=== PATIENT | female | born 1950 | race Caucasian/White ===

== ENCOUNTER 2016-09-02 17:21 | Emergency (ER) | payer OTHER, MEDICAID ==
[2016-09-02] MEDS ORDERED: NS 1,000 ML IV ONE (17:27)
[2016-09-02] MEDS ORDERED: HYDROmorphONE/DILAUDID 1 MG/ML SYR IVP ONE (17:27)
[2016-09-02 17:37] VITALS: TEMP 98.8
[2016-09-02] MEDS ORDERED: HYDROmorphONE/DILAUDID 1 MG/ML SYR ONE (17:55)
[2016-09-02 18:14] LABS: % IMMATURE GRANULYOCYTES 0.3 % (0.0-1.1); ABSOLUTE IMMATURE GRANULOCYTES 0.03 10^3/uL (0.00-0.10); ADD DIFF? NO; ADD MORPH? NO; ADD SCAN? NO; ATYPICAL LYMPHOCYTE FLAG 0 (0-99); FRAGMENT RBC FLAG 0 (0-99); HEMATOCRIT 46.1 % (38.0-47.0); LEFT SHIFT FLG 0 (0-99); LIPEMIA HEMOLYSIS FLAG 90 (0-99); MEAN CELL HEMOGLOBIN 29.9 pg (27.9-34.1); MEAN CELL HEMOGLOBIN CONCENTR. 34.7 g/dL (32.4-36.7); MEAN PLATELET VOLUME 11.2 fL (8.7-11.7); PLATELET CLUMPS FLAG 10 (0-99); PLATELET COUNT 271 10^3/uL (150-400); RED BLOOD CELL COUNT 5.36 10^6/uL (4.18-5.33); RED CELL DISTRIBUTION WIDTH 13.1 % (11.5-15.2)
[2016-09-02] MEDS ORDERED: IOPAMIDOL (ISOVUE-300) 100 ML BTL IV ONE (18:18)
[2016-09-02 18:19] LABS: ANION GAP 14 mEq/L (8-16); CALCIUM 10.3 mg/dL (8.5-10.4); CARBON DIOXIDE 22 mEq/l (22-31); CHLORIDE 102 mEq/L (97-110); GLOMERULAR FILTRATION RATE 55; GLUCOSE 402 mg/dL (70-100); POTASSIUM 5.1 mEq/L (3.5-5.2); SODIUM 138 mEq/L (134-144)
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
[2016-09-02 20:33] VITALS: BP 152/89; PULSE 86; RESP 16; O2SAT 95
== END 2016-09-02 20:42 | disposition home or self-care (01) ==
LOC: EDUNIT#
DX: S20.219A Contusion of unspecified front wall of thorax, initial encounter (principal); E11.9 Type 2 diabetes mellitus without complications; F17.200 Nicotine dependence, unspecified, uncomplicated; V49.40XA Driver injured in collision with unspecified motor vehicles in traffic accident, initial encounter; Y92.410 Unspecified street and highway as the place of occurrence of the external cause; Y99.8 Other external cause status; Y93.89 Activity, other specified
CPT/HCPCS: 82947-QW; 96374; J1170; Q9967

== ENCOUNTER → 2016-11-16 | Outpatient (CLI) | payer OTHER, MEDICAID | LOC: BMCIMAGING 09:58 | PROVIDERS: ATTEND Orthopaedic Surgery | DX: M25.561 Pain in right knee (principal); Z96.651 Presence of right artificial knee joint ==

== ENCOUNTER → 2017-01-06 | Outpatient (CLI) | payer OTHER, MEDICAID | LOC: FIMAGING 15:00 | PROVIDERS: ATTEND Orthopaedic Surgery | DX: Z01.818 Encounter for other preprocedural examination (principal); Z96.651 Presence of right artificial knee joint; M17.11 Unilateral primary osteoarthritis, right knee; M25.461 Effusion, right knee ==

== ENCOUNTER 2017-01-16 06:04 | Inpatient (IN) | payer OTHER, MEDICAID ==
--- NOTE | 2017-01-11 07:26 | CPEKG ---
Heart Rate: 76 RR Interval: 789 P-R Interval: 160 QRSD Interval: 78 QT Interval: 396 QTC Interval: 446 P [place]: 60 QRS [place]: 0 T Wave [place]: 88 EKG Severity - NORMAL ECG - EKG Impression: SINUS RHYTHM EKG Impression: Some artifact noted Electronically Signed By: Doug Walden 11-Jan-2017 11:04:22
[~2017-01-16 06:04] MED LIST: DEXAMETHASONE 4 MG/ML VIAL IVP ONE; FAMOTIDINE 20 MG TAB PO ONE; LIDOCAINE 1% 5 ML, BUPIVACAINE 0.5% 5 ML, morphINE PF 5 MG in SYRINGE 0 ML IU ONE; TRANEXAMIC ACID 1 MG in NS 100 ML IV ONE; TRANEXAMIC ACID 800 MG in NS 100 ML IV ONE; VANCOMYCIN 1.25 GM in D5W 250 ML IV ONE; VANCOMYCIN PHARMACY TO DOSE MISC ONE
--- NOTE | 2017-01-16 06:31 | PDHPUP ---
History & Physical Update H&P update statement: This history and physical update is based on an assessment of the patient which was completed after admission or registration (within 24 hours), but prior to the surgery/procedure.
[2017-01-16] MEDS ORDERED: LIDOCAINE 1% 2 ML INJ ID PRN (07:00)
[2017-01-16] MEDS ORDERED: LR 1,000 ML IV ONE (07:00)
[2017-01-16] MEDS ORDERED: CALCIUM CHLORIDE 1 GM/10 ML INJ ONE (07:29)
[2017-01-16] MEDS ORDERED: THROMBIN (BOVINE) 5,000 UNIT VIAL TP ONE (07:29)
[2017-01-16] MEDS ORDERED: MIDAZOLAM 2 MG/2 ML VIAL IVP ONE (08:17)
--- NOTE | 2017-01-16 08:17 | PDANEPAE ---
ANE History of Present Illness knee arthritis ANE Past Medical History - Cardiovascular History Hx Hypertension: No Hx Arrhythmias: No Hx Chest Pain: No Hx Coronary Artery / Peripheral Vascular Disease: No Hx CHF / Valvular Disease: No - Pulmonary History Hx COPD: Yes Hx Asthma/Reactive Airway Disease: Yes Hx Recent Upper Respiratory Infection: No Hx Oxygen in Use at Home: No Hx Sleep Apnea: Yes Sleep Apnea Screening Result - Last Documented: Positive Pulmonary History Comment: CHRONIC BRONCHITIS - Neurologic History Hx Cerebrovascular Accident: No Hx Seizures: No Hx Dementia: No Neurologic History Comment: SEVERE MIGRAINES 2-3X WEEKLY - Endocrine History Hx Diabetes: Yes Endocrine History Comment: NIDDM - Renal History Hx Renal Disorders: Yes Renal History Comment: BLADDER SLING - Liver History Hx Hepatic Disorders: Yes Hepatic History Comment: HEPATITIS C - NEG X 2 - 3 YEARS - Neurological & Psychiatric Hx Hx Neurological and Psychiatric Disorders: Yes Neurological / Psychiatric History Comment: anxiety and depression - Cancer History Hx Cancer: No - Congenital Disorder History Hx Congenital Disorders: No - GI History Hx Gastrointestinal Disorders: Yes Gastrointestinal History Comment: SEVERE ABD CRAMPS X 1 1/2 MONTHS - Other Health History Other Health History: lower denture. missing right upper molar - Chronic Pain History Chronic Pain: Yes (LOW BACK) - Surgical History Prior Surgeries: HYSTERECTOMY. BLADDER LIFT. R FOOT. TOTAL R KNEE. FATTY TUMORS - L BELOW BREAST. AND L BELOW SHOULDER BLADE. R FOOT ANE Review of Systems - Exercise capacity METS (RN): 3 METS ANE Patient History - Allergies Allergies/Adverse Reactions: acetaminophen [From Tylenol] Allergy (Verified 01/06/17 12:13) Other-Enter Comments canagliflozin [From Invokana] Allergy (Verified 01/06/17 12:13) Other-Enter Comments cephalexin monohydrate [From Keflex] Allergy (Verified 01/06/17 12:13) Vomiting duloxetine HCl [From Cymbalta] Allergy (Verified 01/06/17 12:13) Other-Enter Comments Penicillins Allergy (Verified 01/06/17 12:13) Other-Enter Comments - Home Medications Home medications: home medication list seen and reviewed Home Medications: Albuterol Sulfate [Proair Hfa] 1 - 2 puffs IH Q4 PRN 12/15/16 [Last Taken ] Atorvastatin Calcium [Lipitor 40 mg (*)] 40 mg PO DAILY 12/15/16 [Last Taken ] Cholecalciferol Vit D3 [Vitamin D3 2000 units tab (OTC)] 2,000 units PO BID [Last Taken 1 Week Ago] Diazepam [Valium 5 MG (*)] 5 mg PO DAILY PRN 12/15/16 [Last Taken 01/14/17] Herbals/Supplements -Info Only 1 ea PO DAILY 12/15/16 [Last Taken 1 Week Ago] Insulin Glargine,Hum.rec.anlog [Desiree Gregory] 44 unit SQ HS 12/15/16 [Last Taken 01/16/17 05:30] Lidocaine 5% [Lidoderm 5% Patch (*)] 1 - 2 ea TD HS 12/15/16 [Last Taken 1 Week Ago] Linagliptin [Tradjenta] 5 mg PO DAILY 12/15/16 [Last Taken 01/15/17 12:00] Metformin HCl [Metformin 1000 mg] 1,000 mg PO BID 12/15/16 [Last Taken 01/14/17] Montelukast Sodium [Singulair 10 mg (*)] 10 mg PO DAILY@18 12/15/16 [Last Taken 01/14/17] SUMAtriptan [Imitrex Sc 6 MG Inj (RX)] 6 mg SQ Q1H PRN 12/15/16 [Last Taken 07/12] Solifenacin Succinate [Vesicare] 10 mg PO HS 12/15/16 [Last Taken 01/14/17] Venlafaxine Xr [Effexor Xr] 300 mg PO DAILY 12/15/16 [Last Taken 01/15/17 12:00] Vitamin B Complex [B Complex] 1 each PO DAILY 12/15/16 [Last Taken 1 Week Ago] Zolpidem Tartrate [Ambien 5MG (*)] 5 mg PO HS 12/15/16 [Last Taken 01/14/17] traMADol [Ultram 50 mg (*)] 50 mg PO Q6 PRN 12/15/16 [Last Taken 01/15/17 12:00] traZODone [traZODONE 50MG (*)] 50 mg PO HS 12/15/16 [Last Taken 1 Week Ago] - NPO status NPO Since - Liquids (Date): 01/15/17 NPO Since - Liquids (Time): 23:45 NPO Since - Solids (Date): 01/15/17 NPO Since - Solids (Time): 23:00 - Smoking Hx Smoking Status: Current every day smoker - Family Anes Hx Family Hx Anesthesia Complications: none ANE Labs/Vital Signs - Vital Signs Blood Pressure: 128/100 Heart Rate: 79 Respiratory Rate: 20 O2 Sat (%): 94 Height: 154.94 cm Weight: 83.915 kg ANE Physical Exam - Airway Neck exam: FROM Mallampati Score: Class 2 Mouth exam: normal dental/mouth exam - Pulmonary Pulmonary: no respiratory distress - Cardiovascular Cardiovascular: regular rate and rhythym - ASA Status ASA Status: II ANE Anesthesia Plan Anesthesia Plan: MAC, spinal
[2017-01-16] MEDS ORDERED: ROPI/epiNEPH/KETOROLAC JOINT COCKTAIL IU ONE (08:30)
[2017-01-16] MEDS ORDERED: PROPOFOL 200 MG/20 ML VIAL ONE ×2 (08:42→09:47)
[2017-01-16] MEDS ORDERED: fentaNYL 100 MCG/2 ML INJ ONE ×3 (08:51→11:15)
[2017-01-16] MEDS ORDERED: PROPOFOL/EMULSION 500 MG/50 ML BOTTLE IV ONE (09:02)
[2017-01-16] MEDS ORDERED: NALOXONE HCL 0.4 MG/ML INJ IVP PRN (09:21)
[2017-01-16] MEDS ORDERED: ONDANSETRON 4 MG/2 ML VIAL IVP PRN ×2 (09:21→10:54)
[2017-01-16] MEDS ORDERED: HYDROmorphONE/DILAUDID 2 MG/ML INJ ONE (09:31)
[2017-01-16] MEDS ORDERED: ONDANSETRON 4 MG/2 ML VIAL ONE (10:37)
[2017-01-16] MEDS ORDERED: ROPIVACAINE HCL 150 MG/30 ML INJ ONE (10:37)
[2017-01-16] MEDS ORDERED: CYCLOBENZAPRINE 10 MG TAB PO PRN (10:54)
[2017-01-16] MEDS ORDERED: PROMETHAZINE HCL 25 MG/ML INJ IVP PRN (10:54)
[2017-01-16] MEDS ORDERED: PHARMACY PAIN CONSULT 1 EA MISC PRN (10:54)
[2017-01-16] MEDS ORDERED: LACTULOSE 20 GM/30 ML UDCUP PO PRN (10:54)
[2017-01-16] MEDS ORDERED: MAGNESIUM HYDROXIDE 30 ML UDCUP PO PRN (10:54)
[2017-01-16] MEDS ORDERED: BISACODYL 10 MG SUPP PR PRN (10:54)
[2017-01-16] MEDS ORDERED: METOCLOPRAMIDE 10 MG/2 ML VIAL IVP PRN (10:54)
[2017-01-16] MEDS ORDERED: traMADol 50 MG TAB PO PRN (10:54)
[2017-01-16] MEDS ORDERED: diphenhydrAMINE 25 MG CAP PO PRN (10:54)
[2017-01-16] MEDS ORDERED: PROMETHAZINE HCL 25 MG SUPPR PR PRN (10:54)
[2017-01-16] MEDS ORDERED: ONDANSETRON DISINTEGRATING 4 MG TAB PO PRN (10:54)
[2017-01-16] MEDS ORDERED: DIPHENOXYLATE/ATROPINE LOMOTIL 1 TAB PO PRN (10:54)
[2017-01-16] MEDS ORDERED: TEMAZEPAM 15 MG CAP PO PRN (10:54)
[2017-01-16] MEDS ORDERED: POLYETHYLENE GLYCOL 3350 17 GM PKT PO PRN (10:54)
[2017-01-16] MEDS ORDERED: DIAZEPAM 5 MG TAB PO PRN (10:54)
[2017-01-16] MEDS ORDERED: HYDROmorphONE/DILAUDID 1 MG/ML SYR ONE (11:15)
[2017-01-16] MEDS: HYDROmorphONE/DILAUDID 1 MG/ML SYR IVP PRN ×3 (11:17→11:49)
[2017-01-16] MEDS: fentaNYL 100 MCG/2 ML INJ IVP PRN ×2 (11:22→11:30)
[2017-01-16] MEDS ORDERED: ACETAMINOPHEN 325 MG TAB PO SCH (12:00)
--- NOTE | 2017-01-16 12:39 | POSTANESTH ---
Post Anesthetic Evaluation Cardiovascular Status: Normal, Stable Respiratory Status: Normal, Stable Level of Consciousness/Mental Status: Can Participate in Eval Pain Control: Adequate, Prn Tx Ordered Nausea/Vomiting Control: Adequate, Prn Tx Ordered Complications Possibly Related to Anesthesia: None Noted
[2017-01-16] MEDS: LR 1,000 ML IV SCH ×2 (13:23→20:50)
[2017-01-16] MEDS ORDERED: PARAMETERS MISC PRN (17:49)
[2017-01-16] MEDS ORDERED: D50W 25 GM/50 ML SYR IVP PRN (17:49)
[2017-01-16] MEDS ORDERED: MONTELUKAST SODIUM 10 MG TAB PO SCH (18:00)
[2017-01-16] MEDS: INSULIN REGULAR, HUMAN 100 UNIT/1 ML VIAL LOW SC SCH ×2 (18:34→21:01)
[2017-01-16] MEDS ORDERED: NON-FORMULARY NEW DRUG (Metformin Hcl [Metformin 1000 Mg] 1,000 MG) PO SCH (21:00)
[2017-01-16] MEDS ORDERED: ZOLPIDEM TARTRATE 5 MG TAB PO SCH (21:00)
[2017-01-16] MEDS ORDERED: INSULIN GLARGINE 100 UNITS/ML SYRINGE SC SCH (21:00)
[2017-01-16] MEDS ORDERED: NON-FORMULARY NEW DRUG (Solifenacin Succinate [Vesicare] 10 MG) PO SCH (21:00)
[2017-01-16] MEDS ORDERED: traZODone 50 MG TAB PO SCH (21:00)
[2017-01-16] MEDS ORDERED: SOLIFENACIN SUCCINATE 5 MG TAB PO SCH (21:00)
[2017-01-16] MEDS: CHOLECALCIFEROL VIT D3 2,000 UNITS TAB/CAP PO SCH (21:03)
[2017-01-16] MEDS: oxyCODONE IR 5 MG TAB PO PRN (21:03)
[2017-01-16] MEDS: ASPIRIN 325 MG TAB PO SCH (21:05)
[2017-01-16] MEDS: metFORMIN HCL 500 MG TAB PO SCH (21:05)
[2017-01-16] MEDS: SENNOSIDES/DOCUSATE SODIUM TAB PO SCH (21:06)
[2017-01-16] MEDS: FAMOTIDINE 20 MG TAB PO SCH (21:10)
[2017-01-16] MEDS: INSULIN GLARGINE HUM REC ANLOG 44 UNIT SQ SCH (23:03)
[2017-01-17] MEDS: oxyCODONE IR 5 MG TAB PO PRN ×4 (00:55→13:20)
[2017-01-17 05:17] LABS: HEMATOCRIT 35.4 % (38.0-47.0); HEMOGLOBIN 11.9 g/dL (12.6-16.3)
--- NOTE | 2017-01-17 07:16 | PDIAF ---
- Diagnosis Diagnosis: right knee djd Code Status: Full Code - Medication Management Discharge Medications: Medications to Continue on Transfer Albuterol Sulfate [Proair Hfa] 1 - 2 puffs IH Q4 PRN 12/15/16 [Last Taken ] Atorvastatin Calcium [Lipitor 40 mg (*)] 40 mg PO DAILY 12/15/16 [Last Taken ] Cholecalciferol Vit D3 [Vitamin D3 2000 units tab (OTC)] 2,000 units PO BID [Last Taken 1 Week Ago] Diazepam [Valium 5 MG (*)] 5 mg PO DAILY PRN 12/15/16 [Last Taken 01/14/17] Herbals/Supplements -Info Only 1 ea PO DAILY 12/15/16 [Last Taken 1 Week Ago] Insulin Glargine,Hum.rec.anlog [Desiree Gregory] 44 unit SQ HS 12/15/16 [Last Taken 01/16/17 05:30] Lidocaine 5% [Lidoderm 5% Patch (*)] 1 - 2 ea TD HS 12/15/16 [Last Taken 1 Week Ago] Metformin HCl [Metformin 1000 mg] 1,000 mg PO BID 12/15/16 [Last Taken 01/14/17] Montelukast Sodium [Singulair 10 mg (*)] 10 mg PO DAILY@18 12/15/16 [Last Taken 01/14/17] SUMAtriptan [Imitrex Sc Injection] 6 mg SQ Q1H PRN 12/15/16 [Last Taken 07/03/09 ] Solifenacin Succinate [Vesicare] 10 mg PO HS 12/15/16 [Last Taken 01/14/17] Venlafaxine Xr [Effexor Xr] 300 mg PO DAILY 12/15/16 [Last Taken 01/15/17 12:00] Vitamin B Complex [B Complex] 1 each PO DAILY 12/15/16 [Last Taken 1 Week Ago] Zolpidem Tartrate [Ambien 5MG (*)] 5 mg PO HS 12/15/16 [Last Taken 01/14/17] traMADol [Ultram 50 mg (*)] 50 mg PO Q6 PRN 12/15/16 [Last Taken 01/15/17 12:00] traZODone [traZODONE 50MG (*)] 50 mg PO HS 12/15/16 [Last Taken 1 Week Ago] Dulaglutide [Trulicity] 0.75 mg SQ TU@09 01/16/17 [Last Taken Unknown] Aspirin [Aspirin 325 mg (*)] 325 mg PO DAILY #0 tab 01/17/17 [Last Taken Unknown ] oxyCODONE IR [Oxycodone Ir (*)] 5 - 10 mg PO Q3HRS PRN #90 tab 01/17/17 [Last Taken Unknown] Discharge Medications: Refer to the Discharge Home Medication list for PRN reason. - Orders Services needed: Physical Therapy, Occupational Therapy Diet Recommendation: no restrictions on diet, ADA 2000 consistent carb Diet Texture: Regular Texture Diet Activity/Weight Bearing Restrictions: wbat. rom as tolerated. daily dressing changes. may shower without bandage, no soaking or immersion. aspirin 325 mg po daily. f/u at two weeks. seek attn for increasing pain, cp, sob, other focal complaints - Follow Up Care Current Providers and Referrals: Nicki Xiong MD [Primary Care Provider] -
[2017-01-17] MEDS: INSULIN REGULAR, HUMAN 100 UNIT/1 ML VIAL LOW SC SCH ×2 (08:40→11:36)
[2017-01-17] MEDS: SENNOSIDES/DOCUSATE SODIUM TAB PO SCH (08:41)
[2017-01-17] MEDS: ASPIRIN 325 MG TAB PO SCH (08:41)
[2017-01-17] MEDS: CHOLECALCIFEROL VIT D3 2,000 UNITS TAB/CAP PO SCH (08:41)
[2017-01-17] MEDS: FAMOTIDINE 20 MG TAB PO SCH (08:41)
[2017-01-17] MEDS: metFORMIN HCL 500 MG TAB PO SCH (08:42)
[2017-01-17] MEDS ORDERED: ATORVASTATIN CALCIUM 40 MG TAB PO SCH (09:00)
[2017-01-17] MEDS ORDERED: NON-FORMULARY NEW DRUG (Linagliptin [Tradjenta] 5 MG) PO SCH (09:00)
[2017-01-17] MEDS ORDERED: VITAMIN B COMPLEX 1 EA CAP/TAB PO SCH (09:00)
[2017-01-17] MEDS ORDERED: (Linagliptin [Tradjenta] 5 MG) PO SCH (09:00)
[2017-01-17] MEDS ORDERED: VENLAFAXINE XR 150 MG CAP PO SCH (09:00)
[2017-01-17] MEDS: INSULIN GLARGINE HUM REC ANLOG 44 UNIT SQ SCH (11:42)
[2017-01-17 12:05] VITALS: BP 140/73; PULSE 65; RESP 16; TEMP 98.1; O2SAT 92
--- NOTE | 2017-01-17 17:01 | GDS ---
[f rep st] DISCHARGE SUMMARY DISCHARGE DIAGNOSIS: Right knee degenerative joint disease. DISCHARGE DIAGNOSIS: Right knee degenerative joint disease. PROCEDURE: Right total knee replacement. OPERATIVE INDICATIONS: The patient is a 66-year-old woman who has end-stage arthritis to her right knee. Clinical and radiographic features are consistent with this. She has undergone a previous De uce partial knee replacement by Dr. Blum, and has gone on to subsequent failure. She therefore indio red operative intervention. I felt she was an appropriate candidate. HOSPITAL COURSE: The patient was admitted to the hospital floor after uncomplicated total knee repl acement/revision. She tolerated the procedure well. Postoperatively, she progressed with physical therapy. At the time of discharge, she is tolerating an oral diet. Her pain is well controlled on oral medicines. She is voiding without difficulty. Her dressing is clean, dry, and intact. She alonso s no calf swelling or tenderness. X-rays are stable. DISCHARGE ACTIVITY: She is weightbearing as tolerated. Range of motion as tolerated. Daily dressi ng changes. May shower without the bandage. No soaking or immersion. Seek attention for increasin g redness, swelling, drainage, discharge, or other focal complaint. FOLLOWUP: In 2 weeks in the clinic. DISCHARGE MEDICATIONS: She may resume her outpatient medications, aspirin 325 mg p.o. daily for 6 w eeks and oxycodone 5 mg 1-2 every 6 hours p.r.n. pain. /[id number]/MODL
== END 2017-01-17 13:34 | DRG 468 ==
LOC: F3N 06:04
PROVIDERS: ADMIT Orthopaedic Surgery; ATTEND Orthopaedic Surgery
PROC: 0SRC0J9 Replacement of Right Knee Joint with Synthetic Substitute, Cemented, Open Approach (ICD-10-PCS; principal; 2017-01-16 08:30)
PROC: 0SPC0JZ Removal of Synthetic Substitute from Right Knee Joint, Open Approach (ICD-10-PCS; principal; 2017-01-16 08:30)
DX: M17.11 Unilateral primary osteoarthritis, right knee (principal); I10 Essential (primary) hypertension; E11.9 Type 2 diabetes mellitus without complications; E55.9 Vitamin D deficiency, unspecified; F41.9 Anxiety disorder, unspecified; F17.210 Nicotine dependence, cigarettes, uncomplicated; E78.5 Hyperlipidemia, unspecified; G43.909 Migraine, unspecified, not intractable, without status migrainosus; G89.29 Other chronic pain
CPT/HCPCS: 97110-GP; 97116-GP; 97161-GP; 97165-GO; C1713; G8978-GP-CK; G8979-GP-CI; G8980-GP-CJ; G8987-GO-CJ; G8988-GO-CJ; G8989-GO-CJ; J0171; J1100; J1170; J1815; J1885; J2250; J2274; J2405; J2704; J2795; J3010; J3370

== ENCOUNTER → 2017-02-28 | Outpatient (CLI) | payer OTHER, MEDICAID | LOC: BMCIMAGING 15:44 | PROVIDERS: ATTEND Physician Assistant | DX: Z47.1 Aftercare following joint replacement surgery (principal); Z96.651 Presence of right artificial knee joint ==

== ENCOUNTER → 2017-03-13 | Outpatient (CLI) | payer OTHER, MEDICAID ==
--- NOTE | 2017-03-13 13:38 | PDOTPY ---
History - Physical Therapy Evaluation Documentation and Scheduling Accounts Match: Yes Date of Evaluation (PT): 03/13/17 Insurance Authorization Notes (PT): no visits used - Language Patient's Preferred Healthcare Language: Guamanian - Medical/Surgical Health Status Self Report: Very Good Allergies: Allergy/AdvReac Type Severity Reaction Status Date / Time Penicillins Allergy Severe Other-Enter Verified 01/16/17 11:17 Comments acetaminophen [From Tylenol] Allergy Other-Enter Verified 01/06/17 12:13 Comments canagliflozin [From Invokana] Allergy Other-Enter Verified 01/06/17 12:13 Comments cephalexin monohydrate Allergy Vomiting Verified 01/06/17 12:13 [From Keflex] duloxetine HCl Allergy Other-Enter Verified 01/06/17 12:13 [From Cymbalta] Comments Pertinent Medications: asprin, oxycodone, tramadol Significant Medical Diagnoses/Conditions: diabetes, COPD, broken elbow 1990, prior TKA 2008 Pertinent Surgical History: TKA 2008, TKA 01/16/17, hysterecomy, cateract, 4 surgeries on foot for a wound - Current Condition Referring Medical Diagnosis (PT): TKA R Reason for PT Visit Related To: Knee Date of Onset: 01/16/17 History of Current Condition: Patient had a revision of her R TKA after a failed TKA from 2008. She is walking with a single point cane, she is able to do a few stairs. She had home care for two weeks after her surgery. She is doing her exercises occasionally now and feels that she may have lost some range of motion. She wants to get her knee back to full funtion. - Function Prior to Onset Functional Level Prior to Onset of Current Condition: not able to walk far and had much back pain due to faulty knee - Living Environment Living Arrangements: Alone Type of Residence: House - Work/School/Leisure Work Status: Retired - Learning Preferences Learns Best: Doing/Participation, Visual/Demonstration Tests/Measures - Pain Location of Pain: R knee Self-Reported Pain Level (_/10): 3 - Observation Observation/Posture: posture is WFL - Fall Risk Screening 65 Years Old or Greater: Yes - Functional Mobility Ambulation: Modified Independent (Device) Gait Observations: Antalgic - Range of Motion Knee Range of Motion-Left: 0-140 Knee Range of Motion-Right: 10-105 - Kemp Muscle Testing Hip Flexion Strength (L2)-Left: 4+ Hip Flexion Strength (L2)-Right: 4+ Knee Extension Strength (L3)-Left: 4+ Knee Extension Strength (L3)-Right: 4+ Ankle Dorsiflexion Strength (L4)-Left: 5 Ankle Dorsiflexion Strength (L4)-Right: 5 Great Toe Extension Strength (L5)-Left: 5 Great Toe Extension Strength (L5)-Right: 5 Plantar Flexion Strength (S1)-Left: 5 Plantar Flexion Strength (S1)-Right: 5 Neurologic - Sensation Sensation: Not Impaired (pt had dibetes but denies any numbness in her feet) Treatment - Treatment Rendered Education Provided (PT): Home Exercise Program Other Education Provided (PT): importance of 2x/day exercise for ROM Treatment Provided (PT): Education-Patient, Home Exercise Instruction, Manual Therapy Home Program (PT): Quad sets, knee hang with foot on chair, heel slides, ankle pumps. Patient has program from her home care PT that she is doing occasionally. Assessment - Assessment Rehab Diagnoses/Problem List (PT): Gait Dysfunction, Joint Pain, Range of Motion Impairment, Strength Impairment PT Initial Evaluation Assessment: Patient is S/P R TKA which is a revision from her first in 2008. She decreased ROM, strength, function and altered gait. She will benefit from physical therapy to address these problems. Rehabilitation Potential (PT): Good Considerations Influencing Rehabilitation Potential: Family/Caregiver Support- Limited, History of Condition, Medical Comorbidities-Significant - Additional Documentation See the Following Interventions for Additional Documentation: PT G Code, Outpatient PT Treatment Note (Charges), Outpatient PT Outcome Measures - 1 Functional Limitation-Mobility Mobility Current Status: CK (at least 40%, <60%) Mobility Goal Status: CJ (at least 20%, <40%) Plan of Care - Functional PT Goals Patient/Family Member Participated in Goal Setting: Yes Goal 1 (PT): Patient gains ROM 0-125 in R knee Goal 2 (PT): Patient able to walk without an assistive device for short distances. Goal 3 (PT): Patient able to climb stairs foot over foot - Plan Frequency of Outpatient PT: 2X/Week Anticipated Duration for This Episode of Care (PT): 3 Months PT Intervention Plan to Address Patient Goals: Balance Training, Gait Training, Home Exercise Instruction, Manual Therapy, Neuromuscular Re Education, Therapeutic Exercise - Medicare/Medicaid Medicaid Insurance (Primary): No Medicare Insurance (Primary or Secondary): Yes - Plan of Care Certification-Medicare Only Physical Therapy Plan of Care Certification: The Physician/Non-Physician Practitioner (NPP) signature below serves as approval of the Physical Therapy Plan of Care. This certification is for the duration of the plan of care or 90 calendar days from the date of the initial evaluation/treatment, whichever is less. Medicare requests that the Physician/NPP certify the plan as soon as it is obtained or within 30 days of the initial Physical Therapy treatment. - Attention Physician/NPP Physician/NPP Signature and Date: - Provider Referring Provider (First and Last Name): Angel Gustafson MD; Ainsley Gill PAC
== END ==
PROVIDERS: ATTEND Internal Medicine
DX: R13.10 Dysphagia, unspecified (principal); J44.9 Chronic obstructive pulmonary disease, unspecified; K21.9 Gastro-esophageal reflux disease without esophagitis; Z96.659 Presence of unspecified artificial knee joint
CPT/HCPCS: 74230; 92611; 97110; 97140; 97161; G8978; G8979; G8996; G8997; G8998

== ENCOUNTER → 2017-06-09 | Outpatient (CLI) | payer OTHER, MEDICAID | LOC: BMCIMAGING 09:53 | PROVIDERS: ATTEND Physician Assistant | DX: Z47.1 Aftercare following joint replacement surgery (principal); Z96.651 Presence of right artificial knee joint ==

== ENCOUNTER 2017-11-07 16:31 | Emergency (ER) | payer OTHER, MEDICAID ==
[2017-11-07] MEDS ORDERED: IBUPROFEN 800 MG TAB PO ONE (18:02)
[2017-11-07] MEDS ORDERED: IBUPROFEN 600 MG TAB PO ONE (18:03)
[2017-11-07] MEDS ORDERED: IBUPROFEN 200 MG TAB PO ONE (18:03)
--- NOTE | 2017-11-07 18:07 | EDPHY ---
H & P Stated Complaint: mechanical fall onto R knee--R knee replacement 01/16 Time Seen by Provider: 11/07/17 18:04 HPI/ROS: HPI CHIEF COMPLAINT: Mechanical trip and fall at home. Right knee pain, bilateral hip pain HISTORY OF PRESENT ILLNESS: Patient very pleasant 67-year-old female, presents emergency room with right knee pain and bilateral hip pain worst pain under left than right hip, after she had a mechanical trip and fall at home. She states she tripped and fell over something. She landed on her right knee. She has had a previous right knee replacement. She comes to the emergency room by private vehicle complaining of right knee pain, and bilateral hip pain. Denies chest pain or shortness of breath denies abdominal pain. Denies syncope. Past Medical History: Hepatitis-C, diabetes, back fracture, arthritis Past Surgical History: Right total knee Social History: Denies drugs alcohol tobacco. Family History: Noncontributory ROS REVIEW OF SYSTEMS: A comprehensive 10 point review of systems is otherwise negative aside from elements mentioned in the history of present illness. Exam Constitutional appears well nontoxic no acute distress triage nursing summary reviewed, vital signs reviewed, awake/alert. Eyes normal conjunctivae and sclera, EOMI, PERRLA. HENT normal inspection, atraumatic, moist mucus membranes, no epistaxis, neck supple/ no meningismus, no raccoon eyes. Respiratory clear to auscultation bilaterally, normal breath sounds, no respiratory distress, no wheezing. Cardiovascular rate normal, regular rhythm, no murmur, no edema, distal pulses normal. Gastrointestinal soft, non-tender, no rebound, no guarding, normal bowel sounds, no distension, no pulsatile mass. Genitourinary no CVA tenderness. Musculoskeletal right lower extremity: Tender palpation over the anterior right knee. Midline vertically oriented old incision. No significant swelling on exam. Full range of motion. Neurovascular intact distally. Good distal pulse. Good cap refill. Tender palpation over the left lateral hip. Pelvis stable. no midline vertebral tenderness, full range of motion, no calf swelling , no tenderness of extremities, no meningismus, good pulses, neurovascularly intact. Skin pink, warm, & dry, no rash, skin atraumatic. Neurologic awake, alert and oriented x 3, AAOx3, moves all 4 extremities equally, motor intact, sensory intact, CN II-XII intact, normal cerebellar, normal vision, normal speech. Psychiatric normal mood/affect. Heme/Lymph/Immune no lymphadenopathy. Differential Diagnosis: Includes but is not limited to in a particular order mechanical trip and fall, right knee contusion, right knee fracture, hardware malalignment, hardware fracture, pelvis fracture, hip fracture, soft tissue injury, bony abnormality Medical Decision Making: Plan for this patient x-ray right knee, as well as pelvis x-ray, left hip x-ray. Ibuprofen 800 mg. Re-evaluation: X-ray of the pelvis reviewed by Radiology. Negative for acute fracture. X-ray of the right knee reviewed. Hardware appears to be in appropriate position. No no acute fracture.. This x-ray reviewed by myself. Patient ambulated well to the bathroom. Pain well controlled ibuprofen. Recommend Tylenol, ibuprofen and ice. Return precautions discussed with her. She feels comfortable going home. Source: Patient - Personal History Tetanus Vaccine Date: within 10 years - Medical/Surgical History Hx Asthma: Yes Hx Chronic Respiratory Disease: No Hx Diabetes: Yes Hx Cardiac Disease: Yes Hx Renal Disease: No Hx Cirrhosis: No Hx Alcoholism: No Hx HIV/AIDS: No Hx Splenectomy or Spleen Trauma: No Other PMH: BACK SURGERY, R KNEE REPLACMENT, HEP C, HYSTERECTOMY, R FOOT SURGERY , DM, htn, artherosclerosis, anxiety, chronic pain, sleep apnea, asthma, copd - Social History Smoking Status: Current every day smoker Constitutional: Initial Vital Signs Temperature (C) 36.5 C 11/07/17 16:45 Heart Rate 100 11/07/17 16:45 Respiratory Rate 20 11/07/17 16:45 Blood Pressure 112/58 L 11/07/17 16:45 O2 Sat (%) 94 11/07/17 16:45 O2 Delivery Mode Room Air Allergies/Adverse Reactions: Penicillins Allergy (Severe, Verified 01/16/17 11:17) Other-Enter Comments acetaminophen [From Tylenol] Allergy (Verified 01/06/17 12:13) Other-Enter Comments canagliflozin [From Invokana] Allergy (Verified 01/06/17 12:13) Other-Enter Comments cephalexin monohydrate [From Keflex] Allergy (Verified 01/06/17 12:13) Vomiting duloxetine HCl [From Cymbalta] Allergy (Verified 01/06/17 12:13) Other-Enter Comments Home Medications: Medication Instructions Recorded Albuterol Sulfate [Proair Hfa] 1 - 2 puffs IH Q4 PRN 12/15/16 Atorvastatin Calcium [Lipitor 40 40 mg PO DAILY 12/15/16 mg (*)] Cholecalciferol Vit D3 [Vitamin D3 2,000 units PO BID 12/15/16 2000 units tab (OTC)] Diazepam [Valium 5 MG (*)] 5 mg PO DAILY PRN 12/15/16 Herbals/Supplements -Info Only 1 ea PO DAILY 12/15/16 Insulin Glargine,Hum.rec.anlog 44 unit SQ HS 12/15/16 [Toujeo Solostar] Lidocaine 5% [Lidoderm 5% Patch] 1 - 2 ea TD HS 12/15/16 Metformin HCl [Metformin 1000 mg] 1,000 mg PO BID 12/15/16 Montelukast Sodium [Singulair 10 10 mg PO DAILY@18 12/15/16 mg (*)] SUMAtriptan [Imitrex Sc Injection] 6 mg SQ Q1H PRN 12/15/16 Solifenacin Succinate [Vesicare] 10 mg PO HS 12/15/16 Venlafaxine Xr [Effexor Xr] 300 mg PO DAILY 12/15/16 Vitamin B Complex [B Complex] 1 each PO DAILY 12/15/16 Zolpidem Tartrate [Ambien 5MG (*)] 5 mg PO HS 12/15/16 traMADol [Ultram 50 mg (*)] 50 mg PO Q6 PRN 12/15/16 traZODone [traZODONE 50MG (*)] 50 mg PO HS 12/15/16 Dulaglutide [Trulicity] 0.75 mg SQ TU@09 01/16/17 Aspirin [Aspirin 325 mg (*)] 325 mg PO DAILY #0 tab 01/17/17 oxyCODONE IR [Oxycodone Ir (*)] 5 - 10 mg PO Q3HRS PRN #90 tab 01/17/17 Medical Decision Making - Diagnostics Imaging Results: Imaging Impressions Hip X-Ray 11/07/17 17:51 Impression: 1. No definite fracture of bilateral hips or pelvic bones. 2. Mild constipation. Findings and recommendations discussed with Emergency Department physician, Rell Lopez MD at 18:24 hour, 11/07/2017. Final report concurs with initial preliminary interpretation. Knee X-Ray 11/07/17 17:51 Impression: Right total knee arthroplasty without evidence of dislocation or definite acute fracture. - Data Points Medications Given: Discontinued Medications Ibuprofen (Motrin) 800 mg PO EDNOW ONE Stop: 11/07/17 18:03 Last Admin: 11/07/17 18:08 Dose: 800 mg Departure - Departure Disposition: Home, Routine, Self-Care Clinical Impression: Fall Qualifiers: Encounter type: initial encounter Qualified Code(s): W19.XXXA - Unspecified fall, initial encounter Contusion Qualifiers: Encounter type: initial encounter Contusion area: lower leg Condition: Good Instructions: Contusion in Adults (ED), Fall Prevention (ED) Additional Instructions: 1. Recommend anti-inflammatory pain medicine like Tylenol Motrin. 2. Ice her extremity. 3. Return emergency room if you have worsening symptoms questions or concerns. Referrals: Nicki Xiong MD [Primary Care Provider] - As per Instructions
[2017-11-07 18:52] VITALS: BP 118/70
== END 2017-11-07 18:52 | disposition home or self-care (01) ==
DX: S80.02XA Contusion of left knee, initial encounter (principal); I10 Essential (primary) hypertension; E11.9 Type 2 diabetes mellitus without complications; J44.9 Chronic obstructive pulmonary disease, unspecified; F17.200 Nicotine dependence, unspecified, uncomplicated; Z79.4 Long term (current) use of insulin; Z79.82 Long term (current) use of aspirin; W01.0XXA Fall on same level from slipping, tripping and stumbling without subsequent striking against object, initial encounter; Y92.009 Unspecified place in unspecified non-institutional (private) residence as the place of occurrence of the external cause

== ENCOUNTER → 2017-11-23 | Outpatient (CLI) | payer OTHER, MEDICAID | LOC: FIMAGING 12:58 | PROVIDERS: ATTEND Internal Medicine | DX: R51 Headache (principal); W19.XXXA Unspecified fall, initial encounter ==

== ENCOUNTER 2017-12-01 11:49 | Emergency (ER) | payer OTHER, MEDICAID ==
[2017-12-01] MEDS ORDERED: HALOPERIDOL LACT 5 MG/ML INJ IM ONE ×2 (11:54→17:16)
[2017-12-01] MEDS ORDERED: LORazepam 2 MG/ML INJ IM ONE (11:54)
--- NOTE | 2017-12-01 11:58 | EDPHY ---
H & P Source: Patient, Police, RN/MD Exam Limitations: Clinical condition - Personal History Tetanus Vaccine Date: within 10 years - Medical/Surgical History Hx Asthma: Yes Hx Chronic Respiratory Disease: No Hx Diabetes: Yes Hx Cardiac Disease: Yes Hx Renal Disease: No Hx Cirrhosis: No Hx Alcoholism: No Hx HIV/AIDS: No Hx Splenectomy or Spleen Trauma: No Other PMH: BACK SURGERY, R KNEE REPLACMENT, HEP C, HYSTERECTOMY, R FOOT SURGERY , DM, htn, artherosclerosis, anxiety, chronic pain, sleep apnea, asthma, copd - Social History Smoking Status: Current every day smoker Time Seen by Provider: 12/01/17 11:56 HPI/ROS: HPI: This is a 59-year-old female who presents with Chief Complaint: Left forearm laceration, suicide attempt, M1 hold Location:psych Quality: Suicide attempt Duration: Today Signs and Symptoms:+ suicide attempt, no homicidal ideation, no paranoia, no insomnia, + anxiety, no hallucinations Timing: Acute Severity: Severe Context: Patient is brought in on M1 hold by police today as they were called in on a welfare check by patient's boyfriend. She is currently upside down on her reverse mortgage and will be evicted from her house soon. Upon contact, patient was in bed with a bandage on her arm. Responded showed the bandage to the railroad police and said that a dish fell on her arm. Patient's boyfriend told police that she intentionally broke addition cut herself and then grabbed a 4 in knife to cut herself even further. The patient's boyfriend had to wrestle way the knife from her. Patient began to become belligerent and irrational. She is right-hand dominant. Denies radiation/weakness/ paresthesias. Tetanus status unknown. Modifying Factors: None Comment: ROS: see HPI Constitutional: No fever, no chills, no weight loss Eyes: No blurred vision Respiratory: No shortness of breath, no cough Cardiovascular: No chest pain Gastrointestinal: No nausea, no vomiting, no diarrhea Genitourinary: No dysuria Extremities: No myalgias Neurologic: No weakness, no numbness Skin: No rashes Hematologic: No bruising, no bleeding MEDICAL/SURGICAL/SOCIAL HISTORY: Medical/surgical history: BACK SURGERY, R KNEE REPLACEMENT, HEP C, HYSTERECTOMY, R FOOT SURGERY, DM, htn, arthrosclerosis, anxiety, chronic pain, sleep apnea, asthma, copd Social history: Family history noncontributory. CONSTITUTIONAL: Extremely uncooperative elderly white female, awake and alert, no obvious distress HEENT: Atraumatic and normocephalic, PERRL, EOMI. Nares patent; no rhinorrhea; no nasal mucosal edema. Tympanic membranes clear. Oropharynx clear, no exudate and moist pink mucosa. Airway patent. No lymphadenopathy. No meningismus. Cardiovascular: Normal S1/S2, regular rate, regular rhythm, without murmur rub or gallop. PULMONARY/CHEST: Symmetrical and nontender. Clear to auscultation bilaterally. Good air movement. No accessory muscle usage. ABDOMEN: Soft, nondistended, nontender, no rebound, no guarding, no peritoneal signs, no masses or organomegaly. No CVAT. EXTREMITIES: 2/2 pulses, strength 5/5, left forearm shows 3 inch linear, superficial, simple laceration on the volar aspect. no deformities, no clubbing , no cyanosis or edema. NEUROLOGICAL: no focal neuro deficits. GCS 15. SKIN: Warm and dry, no erythema. no rash. Good capillary refill. PSYCH: Poor eye contact, + flight of ideas, tangential disorganized thought process, poor insight and judgment, no auditory and visual command hallucinations,+ suicidal ideation with a plan, no homicidal ideation, no paranoia (Franchesca Boyd) I assumed care of this patient from Franchesca Boyd 5:00 p.m. Patient will require medical clearance before she can undergo mental health evaluation. She has been sedated while under my care, sleeping. I note that she is an insulin- dependent diabetic, on Lantus. We will keep close track of her blood sugars. Her care is being transferred to at 11:00 p.m.. (Karolyn Faustin) Constitutional: Initial Vital Signs Temperature (C) 36.7 C 12/01/17 12:09 Heart Rate 120 H 12/01/17 12:09 Respiratory Rate 16 12/01/17 12:09 Blood Pressure 180/100 H 12/01/17 12:09 O2 Sat (%) 92 12/01/17 12:09 O2 Delivery Mode Room Air Allergies/Adverse Reactions: Penicillins Allergy (Severe, Verified 01/16/17 11:17) Other-Enter Comments acetaminophen [From Tylenol] Allergy (Verified 01/06/17 12:13) Other-Enter Comments canagliflozin [From Invokana] Allergy (Verified 01/06/17 12:13) Other-Enter Comments cephalexin monohydrate [From Keflex] Allergy (Verified 01/06/17 12:13) Vomiting duloxetine HCl [From Cymbalta] Allergy (Verified 01/06/17 12:13) Other-Enter Comments Home Medications: Medication Instructions Recorded Albuterol Sulfate [Proair Hfa] 1 - 2 puffs IH Q4 PRN 12/15/16 Atorvastatin Calcium [Lipitor 40 40 mg PO DAILY 12/15/16 mg (*)] Cholecalciferol Vit D3 [Vitamin D3 2,000 units PO BID 12/15/16 2000 units tab (OTC)] Diazepam [Valium 5 MG (*)] 5 mg PO DAILY PRN 12/15/16 Herbals/Supplements -Info Only 1 ea PO DAILY 12/15/16 Insulin Glargine,Hum.rec.anlog 44 unit SQ HS 12/15/16 [Desiree Fentonosteneida] Lidocaine 5% [Lidoderm 5% Patch] 1 - 2 ea TD HS 12/15/16 Metformin HCl [Metformin 1000 mg] 1,000 mg PO BID 12/15/16 Montelukast Sodium [Singulair 10 10 mg PO DAILY@18 12/15/16 mg (*)] SUMAtriptan [Imitrex Sc Injection] 6 mg SQ Q1H PRN 12/15/16 Solifenacin Succinate [Vesicare] 10 mg PO HS 12/15/16 Venlafaxine Xr [Effexor Xr] 300 mg PO DAILY 12/15/16 Vitamin B Complex [B Complex] 1 each PO DAILY 12/15/16 Zolpidem Tartrate [Ambien 5MG (*)] 5 mg PO HS 12/15/16 traMADol [Ultram 50 mg (*)] 50 mg PO Q6 PRN 12/15/16 traZODone [traZODONE 50MG (*)] 50 mg PO HS 12/15/16 Dulaglutide [Trulicity] 0.75 mg SQ TU@09 01/16/17 Aspirin [Aspirin 325 mg (*)] 325 mg PO DAILY #0 tab 01/17/17 oxyCODONE IR [Oxycodone Ir (*)] 5 - 10 mg PO Q3HRS PRN #90 tab 01/17/17 Medical Decision Making Procedures: Procedure: Laceration repair. Verbal consent was obtained from the patient. The left forearm laceration 3 inch, simple, deep, horizontal was anesthetized in the usual fashion using 6 mL of 0.5% bupivacaine with epinephrine The wound was irrigated, draped and explored to its base with a gloved finger. There were no deep structures involved. No tendon injury was identified. The wound was repaired with #7, 4- 0 Prolene. Good hemostasis achieved. Clean sterile dressing applied. The procedure was performed by myself. (Franchesca Boyd) ED Course/Re-evaluation: 1205: Agree with M1 hold. Patient is extremely uncooperative and given IM Ativan 2 mg upon arrival for her safety in the nurse's. Labs and UDS ordered. 1305: Laceration repaired with #7 nonabsorbable sutures. Tetanus booster given. Clean sterile dressing applied. No signs of neurovascular compromise/ tenting of skin/compartment syndrome/extremities and joints examined above and below area of concern and are neurovascularly intact. 1318: Labs reviewed and grossly unremarkable. Still waiting for urine sample. 1410: Urine drug screen positive for amphetamine, benzodiazepines, marijuana. Will need to wait 12 hr for medical clearance to have EPS evaluate 1627: Notified by nurse that patient is still irritable. P.o. Zyprexa 5 mg given. 1700: End of shift. Signed over to Dr. Faustin pending medical clearance in the morning hours and mental health evaluation. This patient was seen under the supervision of my secondary supervising physician. I evaluated care for this patient independently. Discussed this patient with Dr. Bahena who did not see the patient. (Franchesca Boyd) I assumed full care of this patient at 5:20 p.m., change of shift for the physician integration assistant. Awaiting medical clearance (methamphetamine on drug screen ) prior to her evaluation. (Karolyn Faustin) Differential Diagnosis: Differential diagnosis includes but is not limited to schizoaffective disorder, bipolar disorder, major depression. (Franchesca Boyd) - Data Points Laboratory Results: Laboratory Results 12/01/17 12:15 06/01/18 12:15 12/01/17 18 12/01/17 13:35 12:15 12:15 WBC 8.60 10^3/uL 10^3/uL (3.80-9.50) RBC 5.24 10^6/uL 10^6/uL (4.18-5.33) Hgb 15.5 g/dL g/dL (12.6-16.3) Hct 45.5 % % (38.0-47.0) MCV 86.8 fL fL (81.5-99.8) MCH 29.6 pg pg (27.9-34.1) MCHC 34.1 g/dL g/dL (32.4-36.7) RDW 13.4 % % (11.5-15.2) Plt Count 249 10^3/uL 10^3/uL (150-400) MPV 9.9 fL fL (8.7-11.7) Neut % (Auto) 58.8 % % (39.3-74.2) Lymph % (Auto) 32.0 % % (15.0-45.0) [place] % (Auto) 6.6 % % (4.5-13.0) Eos % (Auto) 1.7 % % (0.6-7.6) Baso % (Auto) 0.8 % % (0.3-1.7) Nucleat RBC Rel Count 0.0 % % (0.0-0.2) Absolute Neuts (auto) 5.05 10^3/uL 10^3/uL (1.70-6.50) Absolute Lymphs (auto) 2.75 10^3/uL 10^3/uL (1.00-3.00) Absolute Monos (auto) 0.57 10^3/uL 10^3/uL (0.30-0.80) Absolute Eos (auto) 0.15 10^3/uL 10^3/uL (0.03-0.40) Absolute Basos (auto) 0.07 10^3/uL 10^3/uL (0.02-0.10) Absolute Nucleated RBC 0.00 10^3/uL 10^3/uL (0-0.01) Immature Gran % 0.1 % % (0.0-1.1) Immature Gran # 0.01 10^3/uL 10^3/uL (0.00-0.10) Sodium 143 mEq/L mEq/L (135-145) Potassium 4.3 mEq/L mEq/L (3.3-5.0) Chloride 109 mEq/L mEq/L (97-110) Carbon Dioxide 26 mEq/l mEq/l (22-31) Anion Gap 8 mEq/L mEq/L (8-16) BUN 22 mg/dL mg/dL (7-23) Creatinine 1.0 mg/dL mg/dL (0.6-1.0) Estimated GFR 55 Glucose 139 mg/dL H mg/dL (70-100) Calcium 9.7 mg/dL mg/dL (8.5-10.4) Urine Opiates Screen NEGATIVE (NEGATIVE) Urine Barbiturates NEGATIVE (NEGATIVE) Ur Phencyclidine Scrn NEGATIVE (NEGATIVE) Ur Amphetamine Screen NON-NEGATIVE H (NEGATIVE) U Benzodiazepines Scrn NON-NEGATIVE H (NEGATIVE) Urine Cocaine Screen NEGATIVE (NEGATIVE) U Marijuana (THC) Screen NON-NEGATIVE H (NEGATIVE) Ethyl Alcohol < 10 mg/dL mg/dL (0-10) Medications Given: Discontinued Medications Diphtheria/Tetanus/Acell Pertussis (Boostrix) 0.5 ml IM .ONCE ONE Stop: 12/01/17 16:28 Last Admin: 12/01/17 16:33 Dose: 0.5 ml Haloperidol Lactate (Haldol Injection) 5 mg IM EDNOW ONE Stop: 12/01/17 11:55 Last Admin: 12/01/17 14:40 Dose: Not Given Haloperidol Lactate (Haldol Injection) 5 mg IM ONCE ONE Stop: 12/01/17 17:17 Last Admin: 12/01/17 17:25 Dose: 5 mg Lorazepam (Ativan Injection) 2 mg IM EDNOW ONE Stop: 12/01/17 11:55 Last Admin: 12/01/17 14:40 Dose: 2 mg Olanzapine (Zyprexa Zydis) 5 mg PO EDNOW ONE Stop: 12/01/17 16:28 Last Admin: 12/01/17 16:33 Dose: 5 mg Olanzapine (Zyprexa Zydis) 5 mg PO EDNOW ONE Stop: 12/01/17 16:28 Last Admin: 12/01/17 16:34 Dose: Not Given Departure - Departure Clinical Impression: Self-inflicted injury, Polysubstance abuse Laceration of left forearm without complication Qualifiers: Encounter type: initial encounter Qualified Code(s): S51.812A - Laceration without foreign body of left forearm, initial encounter Additional Instructions: Wound Care Follow-Up: Removal of sutures in [10] days. Suture removal is complimentary in uncomplicated cases. Infection or abnormal findings would require reevaluation by the MD. In that case, you may be billed. Referrals: Nicki Xiong MD [Primary Care Provider] - As per Instructions
[2017-12-01 12:32] LABS: PLATELET COUNT 249 10^3/uL (150-400)
[2017-12-01] MEDS ORDERED: OLANZapine DISINTEGR 5 MG TAB PO ONE ×2 (16:27)
[2017-12-01] MEDS ORDERED: TDAP ADULT 0.5 ML INJ (BOOSTRIX) IM ONE (16:27)
[2017-12-02] MEDS ORDERED: metFORMIN HCL 500 MG TAB PO ONE (11:24)
[2017-12-02 16:22] VITALS: BP 139/81
--- NOTE | 2017-12-02 16:26 | EDPHY ---
H & P Time Seen by Provider: 12/01/17 11:56 Smoking Status: Current every day smoker Constitutional: Initial Vital Signs Temperature (C) 36.7 C 12/01/17 12:09 Heart Rate 120 H 12/01/17 12:09 Respiratory Rate 16 12/01/17 12:09 Blood Pressure 180/100 H 12/01/17 12:09 O2 Sat (%) 92 12/01/17 12:09 O2 Delivery Mode Room Air Allergies/Adverse Reactions: Penicillins Allergy (Severe, Verified 01/16/17 11:17) Other-Enter Comments acetaminophen [From Tylenol] Allergy (Verified 01/06/17 12:13) Other-Enter Comments canagliflozin [From Invokana] Allergy (Verified 01/06/17 12:13) Other-Enter Comments cephalexin monohydrate [From Keflex] Allergy (Verified 01/06/17 12:13) Vomiting duloxetine HCl [From Cymbalta] Allergy (Verified 01/06/17 12:13) Other-Enter Comments Home Medications: Medication Instructions Recorded Dulaglutide [Trulicity] 0.75 mg SC ODOM 12/02/17 Insulin Glargine,Hum.rec.anlog 40 units SC HS 12/02/17 [Toudeenao Solostar] Metformin HCl [Metformin 1000 mg] 1,000 mg PO BID 12/02/17 Medical Decision Making - Data Points Laboratory Results: Laboratory Results 12/01/17 12:15 12/01/17 12:15 12/02/17 09:41 POC Glucose 142 mg/dL H mg/dL (70-100) Medications Given: Discontinued Medications Diphtheria/Tetanus/Acell Pertussis (Boostrix) 0.5 ml IM .ONCE ONE Stop: 12/01/17 16:28 Last Admin: 12/01/17 16:33 Dose: 0.5 ml Haloperidol Lactate (Haldol Injection) 5 mg IM EDNOW ONE Stop: 12/01/17 11:55 Last Admin: 12/01/17 14:40 Dose: Not Given Haloperidol Lactate (Haldol Injection) 5 mg IM ONCE ONE Stop: 12/01/17 17:17 Last Admin: 12/01/17 17:25 Dose: 5 mg Lorazepam (Ativan Injection) 2 mg IM EDNOW ONE Stop: 12/01/17 11:55 Last Admin: 12/01/17 14:40 Dose: 2 mg Metformin HCl (Glucophage) 1,000 mg PO EDNOW ONE Stop: 12/02/17 11:25 Last Admin: 12/02/17 12:24 Dose: 1,000 mg Olanzapine (Zyprexa Zydis) 5 mg PO EDNOW ONE Stop: 12/01/17 16:28 Last Admin: 12/01/17 16:33 Dose: 5 mg Olanzapine (Zyprexa Zydis) 5 mg PO EDNOW ONE Stop: 12/01/17 16:28 Last Admin: 12/01/17 16:34 Dose: Not Given Point of Care Test Results: Chemistry 12/02/17 12/02/17 09:41 02:24 POC Glucose 142 mg/dL H mg/dL 121 mg/dL H mg/dL (70-100) (70-100) Departure - Departure Disposition: Home, Routine, Self-Care Clinical Impression: Self-inflicted injury, Polysubstance abuse, Situational depression Laceration of left forearm without complication Qualifiers: Encounter type: initial encounter Qualified Code(s): S51.812A - Laceration without foreign body of left forearm, initial encounter Condition: Good Instructions: Care For Your Stitches (ED), Laceration (ED) Additional Instructions: Wound Care Follow-Up: Removal of sutures in [10] days. Suture removal is complimentary in uncomplicated cases. Infection or abnormal findings would require reevaluation by the MD. In that case, you may be billed. Read and follow provided instructions. Follow-up with [facility] in 2-3 days for re-evaluation. Return to the emergency department for worsening symptoms or other serious concerns. Follow-up with [facility] early this week for re- evaluation. Referrals: Nicki Xiong MD [Primary Care Provider] - As per Instructions
--- NOTE | 2017-12-02 18:43 | ASDISCHSUM ---
Discharge Information Plan Status:Home with No Needs Medically Cleared to Leave: Discharge Date:12/02/2017 04:50 PM CM D/C Disposition:Home, Routine, Self-Care ADT D/C Disposition:Home, Routine, Self-Care Projected Discharge Date:12/02/2017 04:50 PM Transportation at D/C:Friend Discharge Delay Reason: Follow-Up Date:12/02/2017 04:50 PM Discharge Slot: Final Diagnosis: Placement Information Patient Contact Information Contact Name:LINDA Relationship:Friend Address: City: [facility] Phone: State/Zip Code: Email: Financial Information Financial Class:Medicare Primary Plan Desc:MEDICARE OUTPATIENT Primary Plan Number:[id number] Secondary Plan Desc:MED[place] Secondary Plan Number:[id number] Assessment Information Intervention Information Intervention Type:Transportation Date of Service:12/02/2017 06:41 PM Patient Type:Emergency Room Staff Member:BILLIE Tinajero Sharon Hours:0.5 Discipline:Organ Teacher Severity: Comment:[employer] investigative reporter requested assistance w/getting a cab home since they were out of cab vouchers. This CM noticed pt has Medicaid so arranged for a Medicaid cab. But then pt's boyfriend was in [facility] waiting room and transported pt home. Medicaid cab cancelled.
== END 2017-12-02 16:50 | disposition home or self-care (01) ==
LOC: EDUNIT#
PROC: 0HQEXZZ Repair Left Lower Arm Skin, External Approach (ICD-10-PCS; principal; 2017-12-01)
DX: S51.812A Laceration without foreign body of left forearm, initial encounter (principal); Z23 Encounter for immunization; X78.1XXA Intentional self-harm by knife, initial encounter
CPT/HCPCS: 12002; 90471; 90715; 96372; 99285; J1630; J2060; 80305; G0480

== ENCOUNTER 2017-12-18 18:31 | Emergency (ER) | payer OTHER, MEDICAID ==
[2017-12-18 18:39] VITALS: BP 180/98
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
[2017-12-18] MEDS ORDERED: CEPHALEXIN 500MG PREPACK#4 BTL TAKEHOME ONE (19:23)
[2017-12-18] MEDS ORDERED: DOXYCYCLINE HYCLATE 100 MG CAP/TAB PO ONE (19:45)
[2017-12-18] MEDS ORDERED: DOXYCYCLINE 100 MG PREPACK#2 BTL TAKEHOME ONE (19:45)
== END 2017-12-18 19:58 ==
LOC: EDUNIT#
DX: L08.9 Local infection of the skin and subcutaneous tissue, unspecified (principal); R07.89 Other chest pain; I10 Essential (primary) hypertension; J44.9 Chronic obstructive pulmonary disease, unspecified; E11.9 Type 2 diabetes mellitus without complications; Z79.84 Long term (current) use of oral hypoglycemic drugs

== ENCOUNTER → 2018-02-28 | Outpatient (CLI) | payer OTHER, MEDICAID | LOC: BMCIMAGING 10:10 | PROVIDERS: ATTEND Physician Assistant | DX: Z09 Encounter for follow-up examination after completed treatment for conditions other than malignant neoplasm (principal); Z96.651 Presence of right artificial knee joint ==

== ENCOUNTER → 2018-03-08 | Outpatient (CLI) | payer OTHER, MEDICAID | LOC: FIMAGING 08:41 | PROVIDERS: ATTEND Physician Assistant | DX: M25.561 Pain in right knee (principal); Z96.651 Presence of right artificial knee joint | CPT/HCPCS: 78315; A9503 ==

== ENCOUNTER 2018-07-09 13:39 | Emergency (ER) | payer OTHER ==
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
[2018-07-09] MEDS ORDERED: LORazepam 1 MG TAB PO ONE (13:55)
[2018-07-09 15:06] LABS: PLATELET COUNT 251 10^3/uL (150-400)
[2018-07-09 20:57] VITALS: BP 132/105
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
--- NOTE | 2018-07-09 21:15 | ASMTTCLDSP ---
TLC Discharge Disposition Disposition: Answers: Discharge Discharge Concerns/Recommendations: Notes: In consultation with [facility] ED physician, Justin Vazquez MD, and on-call psychiatrist, Maurilio Kincaid MD, both concurred that pt does not appear to meet 27-65 criteria requiring psychiatric hospitalization as pt does not appear to be an imminent risk of harm to self/others/gravely disabled due to a mental illness condition. Psychiatrist vacating M1 Maurilio Kincaid MD Hold: Date and time M1 hold 07/09/2018 08:00 PM vacated (time format is hh:mm): Date Signed: 07/09/2018 09:15 PM Electronically Signed By:Dianelys Lakhani
== END 2018-07-09 20:54 | disposition home or self-care (01) ==
DX: R45.851 Suicidal ideations (principal); F32.9 Major depressive disorder, single episode, unspecified; I10 Essential (primary) hypertension; E11.9 Type 2 diabetes mellitus without complications; Z79.4 Long term (current) use of insulin; F17.200 Nicotine dependence, unspecified, uncomplicated
CPT/HCPCS: 80305; G0480

== ENCOUNTER 2018-07-27 08:45 | Inpatient (IN) | payer OTHER ==
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
[2018-07-27] MEDS ORDERED: oxyCODONE IR 5 MG TAB PO ONE (09:04)
[2018-07-27] MEDS ORDERED: ONDANSETRON 4 MG/2 ML VIAL IVP ONE (10:53)
[2018-07-27] MEDS ORDERED: HYDROmorphONE/DILAUDID 2 MG/ML INJ IVP ONE (10:53)
[2018-07-27] MEDS ORDERED: NS 1,000 ML IV ONE (10:53)
[2018-07-27] MEDS ORDERED: hydrALAZINE 20 MG/ML VIAL IVP PRN (11:20)
[2018-07-27 11:54] LABS: PLATELET COUNT 276 10^3/uL (150-400)
--- NOTE | 2018-07-27 12:06 | CPEKG ---
Test Reason : OPEN Blood Pressure : / mmHG Vent. Rate : 088 BPM Atrial Rate : 088 BPM P-R Int : 139 ms QRS Dur : 079 ms QT Int : 380 ms P-R-T Axes : 039 014 079 degrees QTc Int : 460 ms Sinus rhythm Confirmed by Javier Weathers ([id number]) on 07/27/2018 12:06:00 PM Referred By: Jose Luis Lee Confirmed By:Javier Weathers
--- NOTE | 2018-07-27 12:15 | PDANEPAE ---
ANE History of Present Illness left humoral fracture ANE Past Medical History - Cardiovascular History Hx Hypertension: Yes Hx Arrhythmias: No Hx Chest Pain: No Hx Coronary Artery / Peripheral Vascular Disease: No Hx CHF / Valvular Disease: No Hx Palpitations: No - Pulmonary History Hx COPD: Yes Hx Asthma/Reactive Airway Disease: Yes Hx Recent Upper Respiratory Infection: No Hx Oxygen in Use at Home: No Hx Sleep Apnea: Yes Pulmonary History Comment: CHRONIC BRONCHITIS - Neurologic History Hx Cerebrovascular Accident: No Hx Seizures: No Hx Dementia: No Neurologic History Comment: SEVERE MIGRAINES 2-3X WEEKLY - Endocrine History Hx Diabetes: Yes Hypothyroid: No Hyperthyroid: No Obesity: yes, mild Endocrine History Comment: NIDDM - Renal History Hx Renal Disorders: Yes Renal History Comment: BLADDER SLING - Liver History Hx Hepatic Disorders: Yes Hepatic History Comment: HEPATITIS C - NEG X 2 - 3 YEARS - Neurological & Psychiatric Hx Hx Neurological and Psychiatric Disorders: Yes Neurological / Psychiatric History Comment: anxiety and depression - Cancer History Hx Cancer: No - Congenital Disorder History Hx Congenital Disorders: No - GI History GERD: no Hx Gastrointestinal Disorders: Yes Gastrointestinal History Comment: SEVERE ABD CRAMPS X 1 1/2 MONTHS - Other Health History Other Health History: lower denture. missing right upper molar - Chronic Pain History Chronic Pain: Yes (LOW BACK) - Surgical History Prior Surgeries: HYSTERECTOMY. BLADDER LIFT. R FOOT. TOTAL R KNEE. FATTY TUMORS - L BELOW BREAST. AND L BELOW SHOULDER BLADE. R FOOT ANE Review of Systems Review of systems is: negative Review of Systems: - Exercise capacity METS (RN): 4 METS ANE Patient History - Allergies Allergies/Adverse Reactions: Penicillins Allergy (Severe, Verified 01/16/17 11:17) Other-Enter Comments acetaminophen [From Tylenol] Allergy (Verified 01/06/17 12:13) Other-Enter Comments canagliflozin [From Invokana] Allergy (Verified 01/06/17 12:13) Other-Enter Comments cephalexin monohydrate [From Keflex] Allergy (Verified 01/06/17 12:13) Vomiting duloxetine HCl [From Cymbalta] Allergy (Verified 01/06/17 12:13) Other-Enter Comments - Home Medications Home medications: home medication list seen and reviewed Home Medications: Dulaglutide [Trulicity] 0.75 mg SC ODOM 12/02/17 [Last Taken Unknown] Insulin Glargine,Hum.rec.anlog [Desiree Gregory] 40 units SC HS 12/02/17 [Last Taken Unknown] Metformin HCl [Metformin 1000 mg] 1,000 mg PO BID 12/02/17 [Last Taken Unknown] Albuterol [Proventil Inhaler HFA (*)] 1 - 2 puffs IH Q4H PRN 07/27/18 [Last Taken Unknown] Atorvastatin Calcium [Lipitor 40 mg (*)] 40 mg PO DAILY 07/27/18 [Last Taken Unknown] Cyclobenzaprine [Flexeril 10 MG (*)] 5 mg PO TID PRN 07/27/18 [Last Taken Unknown] Linagliptin [Tradjenta] 5 mg PO DAILY 07/27/18 [Last Taken Unknown] Meloxicam 7.5 mg PO BID 07/27/18 [Last Taken Unknown] QUEtiapine FUMARATE [Seroquel 25 mg (*)] 25 mg PO DAILY 07/27/18 [Last Taken Unknown] Solifenacin Succinate [Vesicare 5 MG (*)] 5 mg PO HS 07/27/18 [Last Taken Unknown] Venlafaxine Xr [Effexor Xr] 300 mg PO DAILY 07/27/18 [Last Taken Unknown] Zolpidem Tartrate [Ambien 5MG (*)] 5 mg PO HS PRN 07/27/18 [Last Taken Unknown] traMADol [Ultram 50 mg (*)] 50 mg PO BID PRN 07/27/18 [Last Taken Unknown] traZODone [traZODONE 50MG (*)] 50 mg PO HS 07/27/18 [Last Taken Unknown] - NPO status NPO Status: no food or drink >8 hours - Anes Hx Anes Hx: no prior problems - Smoking Hx Smoking Status: Current every day smoker - Alcohol Use Alcohol Use: None - Family Anes Hx Family Anes Hx: none Family Hx Anesthesia Complications: none ANE Labs/Vital Signs - Labs Result Diagrams: 07/27/18 11:40 07/27/18 11:40 - Vital Signs Blood Pressure: 139/108 Heart Rate: 85 Respiratory Rate: 18 O2 Sat (%): 97 Height: 152.4 cm Weight: 74.843 kg ANE Physical Exam - Airway Neck exam: FROM Mallampati Score: Class 2 Mouth exam: normal dental/mouth exam, dentures - Pulmonary Pulmonary: no respiratory distress, clear to auscultation - Cardiovascular Cardiovascular: regular rate and rhythym, no murmur, rub, or gallop - ASA Status ASA Status: III ANE Anesthesia Plan Anesthesia Plan: general endotracheal anesthesia
[2018-07-27] MEDS ORDERED: LR 1,000 ML IV ONE (12:18)
--- NOTE | 2018-07-27 12:24 | PDHPUP ---
History & Physical Update H&P update statement: This history and physical update is based on an assessment of the patient which was completed after admission or registration (within 24 hours), but prior to the surgery/procedure. H&P update: H&P reviewed & patient examined, no change in patient's condition since H&P completed
[2018-07-27] MEDS ORDERED: CLINDAMYCIN 900 MG/DEXTROSE 50 ML IV ONE (12:28)
[2018-07-27] MEDS ORDERED: MIDAZOLAM 2 MG/2 ML VIAL IVP ONE (12:32)
[2018-07-27] MEDS ORDERED: ROCURONIUM 50 MG/5 ML VIAL ONE (12:34)
[2018-07-27] MEDS ORDERED: LIDOCAINE 2% 5 ML SDV ONE (12:34)
[2018-07-27] MEDS ORDERED: fentaNYL 250 MCG/5 ML INJ ONE (12:34)
[2018-07-27] MEDS ORDERED: D50W 25 GM/50 ML SYR IVP PRN (12:35)
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
[2018-07-27] MEDS ORDERED: ONDANSETRON DISINTEGRATING 4 MG TAB PO PRN (12:50)
[2018-07-27] MEDS ORDERED: ONDANSETRON 4 MG/2 ML VIAL IVP PRN (12:50)
[2018-07-27] MEDS ORDERED: HYDROmorphONE/DILAUDID 1 MG/ML INJ IVP PRN (12:50)
[2018-07-27] MEDS ORDERED: traMADol 50 MG TAB PO PRN (12:52)
[2018-07-27] MEDS ORDERED: ALBUTEROL 60 PUFFS/8 GM MDI IH PRN (12:52)
[2018-07-27] MEDS ORDERED: ZOLPIDEM TARTRATE 5 MG TAB PO PRN (12:52)
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
[2018-07-27] MEDS ORDERED: BUPIVACAINE 0.25% 30 ML SDV ONE (13:01)
[2018-07-27] MEDS ORDERED: EPINEPHrine 1 MG/ML INJ ONE (13:01)
[2018-07-27] MEDS ORDERED: METOPROLOL TARTRATE 5 MG/5 ML INJ ONE (13:45)
[2018-07-27] MEDS ORDERED: PROMETHAZINE HCL 25 MG/ML INJ IVP PRN (13:59)
[2018-07-27] MEDS ORDERED: HYDROmorphONE/DILAUDID 2 MG/ML INJ IVP PRN (13:59)
[2018-07-27] MEDS ORDERED: NALOXONE HCL 0.4 MG/ML INJ IVP PRN (13:59)
[2018-07-27] MEDS ORDERED: LR 500 ML IV PRN (13:59)
[2018-07-27] MEDS ORDERED: ONDANSETRON 4 MG/2 ML VIAL ONE ×2 (14:37→15:14)
[2018-07-27] MEDS ORDERED: NEOSTIGMINE METHYLSULFATE 5 MG/5 ML SYR ONE (14:40)
[2018-07-27] MEDS ORDERED: GLYCOPYRROLATE 0.2 MG/1 ML VIAL ONE (14:40)
--- NOTE | 2018-07-27 14:58 | POSTOPPROG ---
Post Op Note Date of Operation: 07/27/18 Surgeon: David Alves Commercial Diver: Cj Anesthesiologist: Demi Pre-op Diagnosis: L prox humerus fx Post-op Diagnosis: same Indication: above Procedure: orif L prox humerus fx Inf/Abcess present in the surg proc area at time of surgery?: No EBL: 50-100
[2018-07-27] MEDS ORDERED: fentaNYL 100 MCG/2 ML INJ ONE (15:14)
[2018-07-27] MEDS: fentaNYL 100 MCG/2 ML INJ IVP PRN ×2 (15:17→15:28)
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
[2018-07-27] MEDS: oxyCODONE IR 5 MG TAB PO PRN ×2 (17:37→21:31)
[2018-07-27] MEDS: INSULIN LISPRO 100 UNIT/ML SC SCH (17:41)
[2018-07-27] MEDS ORDERED: LORazepam 2 MG/ML INJ IVP PRN (19:22)
[2018-07-27] MEDS ORDERED: INSULIN GLARGINE 100 UNITS/ML UNIT SC ONE (21:00)
[2018-07-27] MEDS: SOLIFENACIN SUCCINATE 5 MG TAB PO SCH (21:31)
[2018-07-27] MEDS: INSULIN GLARGINE HUM REC ANLOG 40 UNIT SC SCH (21:42)
[2018-07-27] MEDS: traZODone 50 MG TAB PO SCH (21:42)
[2018-07-28] MEDS: oxyCODONE IR 5 MG TAB PO PRN ×4 (02:44→21:24)
[2018-07-28 05:38] LABS: PLATELET COUNT 233 10^3/uL (150-400)
[2018-07-28] MEDS: INSULIN LISPRO 100 UNIT/ML SC SCH ×3 (08:24→18:02)
[2018-07-28] MEDS: VENLAFAXINE XR 150 MG CAP PO SCH (08:25)
[2018-07-28] MEDS: ATORVASTATIN CALCIUM 40 MG TAB PO SCH (08:25)
[2018-07-28] MEDS: diphenhydrAMINE 25 MG CAP PO PRN ×2 (10:08→18:03)
[2018-07-28] MEDS ORDERED: NS 500 ML IV SCH (10:30)
[2018-07-28] MEDS: QUEtiapine FUMARATE 25 MG TAB PO SCH (10:41)
[2018-07-28] MEDS: CYCLOBENZAPRINE 10 MG TAB PO PRN (12:19)
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
[2018-07-28] MEDS: traZODone 50 MG TAB PO SCH (21:10)
[2018-07-28] MEDS: SOLIFENACIN SUCCINATE 5 MG TAB PO SCH (21:10)
[2018-07-28] MEDS: INSULIN GLARGINE 100 UNITS/ML UNIT SC SCH (21:11)
[2018-07-28] MEDS: INSULIN GLARGINE HUM REC ANLOG 40 UNIT SC SCH (21:42)
[2018-07-29] MEDS: oxyCODONE IR 5 MG TAB PO PRN ×3 (07:53→20:43)
[2018-07-29] MEDS: ATORVASTATIN CALCIUM 40 MG TAB PO SCH (08:24)
[2018-07-29] MEDS: QUEtiapine FUMARATE 25 MG TAB PO SCH ×2 (08:24→20:42)
[2018-07-29] MEDS: VENLAFAXINE XR 150 MG CAP PO SCH (08:27)
[2018-07-29] MEDS: INSULIN LISPRO 100 UNIT/ML SC SCH ×3 (08:29→18:27)
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
[2018-07-29] MEDS ORDERED: Dulaglutide [Trulicity] 0.75 MG SC SCH (12:52)
[2018-07-29] MEDS ORDERED: INSULIN LISPRO 100 UNIT/ML SC ONE ×2 (15:30→15:45)
[2018-07-29] MEDS ORDERED: D50W 25 GM/50 ML SYR IVP PRN (15:44)
--- NOTE | 2018-07-29 15:58 | ASMTCMCOM ---
CM Note CM Note Notes: [facility] came to assess pt today for SNF. DC plan TBD Date Signed: 07/29/2018 03:58 PM Electronically Signed By:Renata Amin RN
--- NOTE | 2018-07-29 16:43 | ASMTCMCOM ---
CM Note CM Note Notes: Rep from [facility] came today to see pt, She has been to their facility before. MAURICE sent updated PT/OT notes and faxed triggered pasrr to Igor, copy in back of chart. DC Plan: SNF Date Signed: 07/29/2018 04:43 PM Electronically Signed By:Renata Amin RN
[2018-07-29] MEDS: traZODone 50 MG TAB PO SCH (20:42)
[2018-07-29] MEDS: SOLIFENACIN SUCCINATE 5 MG TAB PO SCH (20:42)
[2018-07-29] MEDS: INSULIN GLARGINE 100 UNITS/ML UNIT SC SCH (20:42)
[2018-07-29] MEDS: INSULIN GLARGINE HUM REC ANLOG 40 UNIT SC SCH (20:43)
[2018-07-30] MEDS: oxyCODONE IR 5 MG TAB PO PRN ×5 (03:57→21:52)
[2018-07-30] MEDS: VENLAFAXINE XR 150 MG CAP PO SCH (08:27)
[2018-07-30] MEDS: INSULIN LISPRO 100 UNIT/ML SC SCH ×3 (08:27→18:20)
[2018-07-30] MEDS: ATORVASTATIN CALCIUM 40 MG TAB PO SCH (08:28)
[2018-07-30] MEDS ORDERED: LACTULOSE 20 GM/30 ML UDCUP PO PRN (08:52)
[2018-07-30] MEDS ORDERED: MAGNESIUM HYDROXIDE 30 ML UDCUP PO PRN (08:52)
[2018-07-30] MEDS ORDERED: POLYETHYLENE GLYCOL 3350 17 GM PKT PO PRN (08:52)
[2018-07-30] MEDS ORDERED: BISACODYL 10 MG SUPP PR PRN (08:52)
[2018-07-30] MEDS: SENNOSIDES/DOCUSATE SODIUM TAB PO SCH ×2 (09:42→20:39)
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
--- NOTE | 2018-07-30 13:29 | ASMTCMCOM ---
CM Note CM Note Notes: CM spoke to Anny Hayden NP regarding d/c POC. CM spoke to Igor with [facility]. Igor will finish her pasrr and get it back to CM by tomorrow. Anticipate that pt will be able to d/c tomorrow. [facility] is working on getting auth from [employer] insurance. CM to follow. Plan: [facility] Date Signed: 07/30/2018 01:27 PM Electronically Signed By:DARLYN Salter
--- NOTE | 2018-07-30 14:21 | ASMTCMCOM ---
CM Note CM Note Notes: [facility] has denied pt because pt has been there before and had some behavioral issues. CM made additional referrals and notified Anny. Date Signed: 07/30/2018 02:21 PM Electronically Signed By:DARLYN Salter
[2018-07-30] MEDS ORDERED: Dulaglutide [Trulicity] 0.75 MG SQ SCH (18:00)
[2018-07-30] MEDS: SOLIFENACIN SUCCINATE 5 MG TAB PO SCH (20:39)
[2018-07-30] MEDS: traZODone 50 MG TAB PO SCH (20:39)
[2018-07-30] MEDS: INSULIN GLARGINE 100 UNITS/ML UNIT SC SCH (20:39)
[2018-07-30] MEDS: QUEtiapine FUMARATE 25 MG TAB PO SCH (20:39)
[2018-07-30] MEDS: CYCLOBENZAPRINE 10 MG TAB PO PRN (21:52)
[2018-07-31] MEDS: oxyCODONE IR 5 MG TAB PO PRN ×2 (03:30→08:54)
[2018-07-31 07:47] VITALS: BP 130/82
[2018-07-31] MEDS: VENLAFAXINE XR 150 MG CAP PO SCH (08:37)
[2018-07-31] MEDS: ATORVASTATIN CALCIUM 40 MG TAB PO SCH (08:38)
[2018-07-31] MEDS: SENNOSIDES/DOCUSATE SODIUM TAB PO SCH (08:38)
[2018-07-31] MEDS: CYCLOBENZAPRINE 10 MG TAB PO PRN (08:38)
[2018-07-31] MEDS: INSULIN LISPRO 100 UNIT/ML SC SCH ×2 (08:43→12:11)
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
--- NOTE | 2018-07-31 10:03 | PDIAF ---
- Diagnosis Diagnosis: left humer fx, diabetes Code Status: Full Code - Medication Management Discharge Medications: electronically signed and located in the Home Medication List. PICC Care - Routine: N/A - Orders Services needed: Physical Therapy, Occupational Therapy Diet Recommendation: no restrictions on diet, ADA 2000 consistent carb Additional Instructions: 5 lbs wt limit left upper extremity keep dry leave dressing in place ice Check glucose QAC and QHS, she may need a sliding scale - Labs/Radiology BMP Date: 08/01/18 (weekly if needed) - Follow Up Care Current Providers and Referrals: Dvaid Alves MD [Medical Doctor] - follow up in 10 days Patient,NotPresent [Unknown] - As per Instructions
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
--- NOTE | 2018-07-31 10:20 | ASMTDCNOTE ---
Case Management Discharge Discharge Order Complete? Answers: Yes Patient to Obtain Answers: Other Notes: [facility] Medications Transportation Arranged Answers: Other Notes: [facility] w/c transport EMTALA Complete Answers: No Case Management Transport Answers: No Form Complete Faxed Final Orders Answers: Yes Agency/Facility Transfer Answers: Yes Report Printed & Faxed to Receiving Agency Family Notified Answers: No Discharge Comments Notes: Pts case discussed w/ Sarina Frost NP. Pt is being d/c'd today to [facility] today. CM spoke to [facility] and she set up transportation with [facility]. DC orders sent. BILLIE Mcclain will call to give report. CM available for changes. Plan: [facility] Date Signed: 07/31/2018 10:19 AM Electronically Signed By:DARLYN Salter
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
== END 2018-07-31 13:15 | DRG 494 ==
LOC: EDUNIT# → OBSVTOIN 11:22 → F3N 16:04
PROVIDERS: ADMIT Family Medicine; ATTEND Family Medicine
PROC: 0PSG04Z Reposition Left Humeral Shaft with Internal Fixation Device, Open Approach (ICD-10-PCS; principal; 2018-07-27 13:00)
DX: S42.232A 3-part fracture of surgical neck of left humerus, initial encounter for closed fracture (principal); Y04.8XXA Assault by other bodily force, initial encounter; Y92.019 Unspecified place in single-family (private) house as the place of occurrence of the external cause; N28.9 Disorder of kidney and ureter, unspecified; E11.9 Type 2 diabetes mellitus without complications; I10 Essential (primary) hypertension; J44.9 Chronic obstructive pulmonary disease, unspecified; G89.29 Other chronic pain; F32.9 Major depressive disorder, single episode, unspecified; G43.909 Migraine, unspecified, not intractable, without status migrainosus; Z79.4 Long term (current) use of insulin
CPT/HCPCS: 82947-QW; 96374; 97110-GO; 97116-GP; 97161-GP; 97165-GO; 97530-GO; 97530-GP; 97535-GO; A4565; C1713; C1769; J0171; J1170; J1815; J2060; J2405; J2710; J3010

== ENCOUNTER 2018-11-30 15:37 | Inpatient (IN) | payer OTHER, MEDICAID ==
[2018-11-30] MEDS ORDERED: NS 1,000 ML IV ONE (15:43)
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
[2018-11-30 15:55] LABS: PLATELET COUNT 235 10^3/uL (150-400)
[2018-11-30] MEDS ORDERED: INSULIN REGULAR HUMAN 100 UNIT/ML UNIT IVP ONE (16:48)
[2018-11-30] MEDS ORDERED: SULFAMETHOX/TMP 800/160 MG 1 TAB PO ONE (16:49)
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
--- NOTE | 2018-11-30 17:19 | CPEKG ---
Test Reason : OPEN Blood Pressure : / mmHG Vent. Rate : 103 BPM Atrial Rate : 104 BPM P-R Int : 186 ms QRS Dur : 079 ms QT Int : 387 ms P-R-T Axes : 066 018 064 degrees QTc Int : 507 ms Sinus tachycardia Prolonged QT interval Confirmed by Doug Grey ([id number]) on 11/30/2018 5:19:28 PM Referred By: Doug Grey Confirmed By:Doug Grey
[2018-11-30] MEDS ORDERED: ONDANSETRON 4 MG/2 ML VIAL IVP PRN (19:30)
[2018-11-30] MEDS ORDERED: ACETAMINOPHEN 325 MG TAB PO PRN (19:30)
[2018-11-30] MEDS ORDERED: oxyCODONE IR 5 MG TAB PO PRN (19:30)
[2018-11-30] MEDS ORDERED: ONDANSETRON DISINTEGRATING 4 MG TAB PO PRN (19:30)
[2018-11-30] MEDS ORDERED: HYDROmorphONE/DILAUDID 1 MG/ML INJ IVP PRN (19:30)
[2018-11-30] MEDS ORDERED: D50W 25 GM/50 ML SYR IVP PRN (19:32)
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
[2018-11-30] MEDS ORDERED: NS 1,000 ML IV SCH (21:45)
[2018-11-30] MEDS ORDERED: hydrALAZINE 20 MG/ML VIAL IVP PRN (23:44)
[2018-11-30] MEDS: INSULIN GLARGINE 100 UNITS/ML UNIT SC SCH (23:59)
[2018-12-01] MEDS: BIOTENE DRY MOUTH ORAL RINSE 237 ML BTL MM PRN ×2 (00:19→18:34)
[2018-12-01] MEDS: INSULIN LISPRO 100 UNIT/ML SC SCH ×3 (08:38→18:42)
[2018-12-01] MEDS ORDERED: FUROSEMIDE 20 MG/2 ML VIAL IVP ONE (11:24)
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
[2018-12-01] MEDS ORDERED: FUROSEMIDE 20 MG TAB PO ONE (13:14)
[2018-12-01] MEDS ORDERED: FUROSEMIDE 20 MG TAB ONE (13:21)
--- NOTE | 2018-12-01 14:37 | ECHO ---
[email or web address] [address] [address] Main: [phone] Echocardiography Examination Transthoracic Name: CASSANDRA ONEIL MR#: [id number] Study Date: 12/01/2018 Study Time: 01:15 PM Date of : 1950 Age: 68 year(s) Height: 154.9 cm (61 in.) Weight: 65.77 kg (145 lb.) BSA: 1.65 m2 Gender: Female Examination: Echo Contrast: Image Quality: Rhythm: Tachycardia Heart Rate: 112 bpm BP: 163 mmHg/106 mmHg Indication: Pedal Edema, tachycardia, Unspec HTN HT disease w/ HF Procedure Staff Referring Physician: Credit Balance Specialist: Alan Dugan RDCS Reading Physician: Tyrone Crabtree MD Requesting Provider: Ordering Physician: Jose Luis Lee Indication: Pedal Edema, tachycardia, Unspec HTN HT disease w/ HF Measurements Chambers AV/MV Label Value Normal Value Label Value Normal Value LVOT Vmax 0.76 m/s (0.7m/s - 1.1m/s) AV PGmax 6 mmHg LVOT VTI 20.4 cm (18cm - 22cm) AV PGmean 4 mmHg LVDd, 2D 4.3 cm (3.9cm - 5.3cm) AV Vmax 1.24 m/s LVDs, 2D 3 cm (2.1cm - 4cm) MV E Vmax 0.62 m/s IVSd, 2D 0.9 cm (0.6cm - 1.1cm) MV A Vmax 0.98 m/s LVPWd, 2D 0.9 cm MV E/A 0.63 LVEF, 2D 55 % (54% - 74%) MV E/E' lateral 10.4 LVOT PGmean 1 mmHg MV E/E' septal 19.2 (0.45 - 1.25) LVOT Vmean 0.44 m/s MV E' septal 0.03 m/s RVDd, 2D 1.8 cm (1.9cm - 3.8cm) MV E' lateral 0.06 m/s LA Volume, BP 32 ml (22ml - 52ml) MV E/E' mean 13.78 LADs, 2D 2.8 cm (2.7cm - 3.8cm) MV E' mean 0.04 m/s LAESV index, BP 19.4 ml/m2 TV/PV Additional Vessels Label Value Normal Value Label Value Normal Value PV PGmax 3 mmHg AoRoot, MM 2.9 cm (2.2cm - 3.7cm) PV Vmax, Caliper 0.92 m/s (0.6m/s - 0.9m/s) Conclusions Patient: CASSANDRA ONEIL Study Date: 12/01/2018 Page 1 of 2 01:15 PM Left Ventricle: The EF is visually estimated to be 60 %. Regional wall motion abnormality noted - basal inferior hypokinesis. Findings Left Ventricle: During the exam the heart rate ranged from 75-115bpm. Left ventricle is normal in size. Normal global systolic left ventricular function. The EF is visually estimated to be 60 %. EF range is estimated at 50 % - 60 %. Left ventricle wall thickness is normal. Regional wall motion abnormality noted - basal inferior hypokinesis. Grade I Diastolic Dysfunction. IVS: The septum is intact. Right Ventricle: Normal size right ventricle. Right ventricular systolic function is normal. Left Atrium: The left atrium is normal in size. IAS: Normal appearing atrial septum. Right Atrium: The right atrium is normal in size. Mitral Valve: Mitral valve is normal in appearance. No mitral regurgitation. No mitral valve stenosis. Aortic Valve: Aortic leaflets exhibit normal cuspal separation. No aortic valve regurgitation. There is no aortic stenosis. Tricuspid Valve: Tricuspid valve leaflets are normal in appearance and function. Mild tricuspid regurgitation. No tricuspid valve stenosis. Pulmonary artery pressure cannot be assessed due to inadequate TR signal. Pulmonic Valve: Pulmonic leaflets exhibit normal cuspal separation. No pulmonic valve regurgitation is evident. There is no pulmonic valve stenosis. Aorta: The aorta is normal. The aortic root size in M-mode measures 2.9 cm. Aorta Measurements AoRoot, MM is 2.9 cm. Pulmonary Artery: The pulmonary artery morphology appears normal. IVC: The inferior vena cava is normal in size and course. Pericardium: No pericardial effusion. No pleural effusion present. Exam Details Procedure Ordered: Echo (No Signature Object) Patient: CASSANDRA ONEIL Study Date: 12/01/2018 Page 2 of 2 01:15 PM [id number]
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
[2018-12-01] MEDS: INSULIN GLARGINE 100 UNITS/ML UNIT SC SCH (22:02)
[2018-12-02] MEDS ORDERED: INSULIN GLARGINE 100 UNITS/ML UNIT SC SCH ×2 (09:08→13:39)
[2018-12-02] MEDS: INSULIN LISPRO 100 UNIT/ML SC SCH ×3 (09:17→17:48)
[2018-12-02] MEDS: LISINOPRIL 5 MG TAB PO SCH (09:18)
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
[2018-12-02] MEDS ORDERED: FUROSEMIDE 20 MG TAB PO ONE (13:45)
[2018-12-02] MEDS: ASPIRIN 81 MG CHEWABLE TAB PO SCH (14:56)
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
[2018-12-03] MEDS: LISINOPRIL 5 MG TAB PO SCH (08:47)
[2018-12-03] MEDS: INSULIN LISPRO 100 UNIT/ML SC SCH ×3 (08:47→18:44)
[2018-12-03] MEDS: ASPIRIN 81 MG CHEWABLE TAB PO SCH (08:47)
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
[2018-12-03] MEDS ORDERED: REGADENOSON 0.4 MG/5 ML SYR IVP ONE (10:35)
[2018-12-03] MEDS: IBUPROFEN 600 MG TAB PO PRN (11:25)
--- NOTE | 2018-12-03 12:36 | CPR ---
[f rep st] NONINVASIVE CARDIAC PROCEDURE REPORT DATE OF PROCEDURE: 12/03/2018 REPORT TITLE: LEXISCAN NUCLEAR STRESS TEST REPORT. SUPERVISING PHYSICIAN: Dr. Jos Peña, Cardiology. REASON FOR TEST: Chest pain. Resting EKG shows a sinus tachycardia with a rate of 112, probable left ventricular hypertrophy. No arrhythmias. Resting blood pressure 120/90, resting heart rate 60, oxygen saturation 91%. She compl ains of back discomfort prior to testing. STRESS PORTION: Lexiscan nuclear stress test.: Lexiscan injected rapidly, followed by saline flush, Cardiolite then injected, followed by saline flush. Peak blood pressure 130/90, peak heart rate 114 . Rare PVC noted. Oxygen saturation 93%. She complained of a flushing and increasing pelvic pain. EKG remained stable. No ischemic changes noted. RECOVERY: She spontaneously recovered with EKG remaining stable. Blood pressure 124/90, oxygen satu ration 94%, heart rate 120 likely related to pain level. There were no ischemic changes. She had 1 PVC noted during recovery. Caffeine was given during recovery, which did assist in relieving her dis comfort and flushing. At this time, she currently is stable for nuclear imaging. /[id number]/MODL
[2018-12-03] MEDS ORDERED: INSULIN GLARGINE 100 UNITS/ML UNIT SC SCH (16:14)
--- NOTE | 2018-12-03 16:45 | ASMTCMCOM ---
CM Note CM Note Notes: Pts case discussed in tx rounds. Pts stress test was negative today. CM called Brigid at [facility] and left a msg. She had concerns about pts home situation. CM will discuss w/ Darlyn tomorrow AM. Pt does not have active Medicaid. CM requesting pt to be screened tomorrow AM. Otherwise, pt has a plan in placed to call Antonio Low to be present when she arrives home. Pt also has the phone number to Deisy Knott for community support. CM to follow. Date Signed: 12/03/2018 04:44 PM Electronically Signed By:DARLYN Salter
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
[2018-12-03] MEDS ORDERED: INSULIN LISPRO 100 UNIT/ML SC ONE (21:00)
[2018-12-04] MEDS ORDERED: ATORVASTATIN CALCIUM 40 MG TAB PO SCH (09:00)
[2018-12-04] MEDS: ASPIRIN 81 MG CHEWABLE TAB PO SCH (10:28)
[2018-12-04] MEDS: LISINOPRIL 5 MG TAB PO SCH (10:28)
[2018-12-04] MEDS: INSULIN LISPRO 100 UNIT/ML SC SCH ×2 (10:28→13:59)
[2018-12-04 11:38] VITALS: BP 123/73
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
--- NOTE | 2018-12-04 14:11 | PDIAF ---
- Diagnosis Diagnosis: Chest pain, CHF, uncontrolled DM Code Status: Full Code - Medication Management Discharge Medications: electronically signed and located in the Home Medication List. - Orders Services needed: Home Care, Registered Nurse, Master Human Performance Technologist, Physical Therapy, Occupational Therapy Home Care Face to Face: I certify that this patient was under my care and that I had the required [id number] encounter meeting the encounter requirements on the discharge day. My findings support the fact that the patient is homebound as defined in Home Care Face to Face Continued: CMS Chapter 7 Medicare Benefits Manual 30.1.1 , The condition of the patient is such that there exists a normal inability to leave home and consequently, leaving home would require a considerable and taxing effort. Diet Recommendation: no restrictions on diet - Follow Up Care Current Providers and Referrals: Nicki Xiong MD [Primary Care Provider] - As per Instructions
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
[2018-12-04] MEDS: IBUPROFEN 600 MG TAB PO PRN (14:40)
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
== END 2018-12-04 16:28 | disposition home or self-care (01) | DRG 637 ==
LOC: EDUNIT# → EEVIPCON 16:47 → INTOOBSV 16:47 → F2W 17:55 → OBSVTOIN 12-03 16:14
PROVIDERS: ADMIT Internal Medicine; ATTEND Internal Medicine
DX: E11.65 Type 2 diabetes mellitus with hyperglycemia (principal); I11.0 Hypertensive heart disease with heart failure; I50.21 Acute systolic (congestive) heart failure; T74.91XA Unspecified adult maltreatment, confirmed, initial encounter; T38.3X6A Underdosing of insulin and oral hypoglycemic [antidiabetic] drugs, initial encounter; E86.9 Volume depletion, unspecified; F15.10 Other stimulant abuse, uncomplicated; E78.5 Hyperlipidemia, unspecified; J44.9 Chronic obstructive pulmonary disease, unspecified; J40 Bronchitis, not specified as acute or chronic; G89.29 Other chronic pain; Z72.0 Tobacco use; Z79.4 Long term (current) use of insulin
CPT/HCPCS: 80305; 84484-ER; A9500; G0378; J0360; J1815; J1940; J2785